=== PATIENT | female | born 1970 | race Caucasian/White ===

== ENCOUNTER → 2016-10-31 | Outpatient (CLI) | payer SELFPAY | LOC: KOH-I 12:54 | DX: M67.431 Ganglion, right wrist (principal); M25.531 Pain in right wrist | CPT/HCPCS: 73110 ==

== ENCOUNTER → 2020-10-20 | Outpatient (CLI) | payer BC, OTHER ==
[~2020-10-20] MED LIST: ACCUPRIL10 MG PO; KLONOPIN TAB 00.5 MG PO; METOPROLOL TART25 MG PO; RANITIDINE HCL300 MG PO; ZOLOFT100 MG PO
[2020-10-20 11:32] LABS: RED BLOOD COUNT 4.21 M/UL (4.00-5.10); WHITE BLOOD COUNT 7.7 K/UL (4.5-11.0)
[2020-10-20 12:01] LABS: BUN/CREATININE RATIO 10 (0-10)
== END ==
LOC: LAB 10:52
PROVIDERS: Physician Assistant
DX: R10.13 Epigastric pain (principal)
CPT/HCPCS: 36415; 80048; 80076; 81001; 82150; 83690; 85025

== ENCOUNTER → 2021-03-27 | Outpatient (CLI) | payer BC | LOC: MAMO 11:05 | DX: Z12.31 Encounter for screening mammogram for malignant neoplasm of breast (principal) | CPT/HCPCS: 77063; 77067 ==

== ENCOUNTER → 2021-12-15 | Outpatient (CLI) | payer BC | LOC: ECHO 08:14 | DX: O90.3 Peripartum cardiomyopathy (principal); I42.9 Cardiomyopathy, unspecified | CPT/HCPCS: ECHO; 93306 ==

== ENCOUNTER → 2022-03-30 | Outpatient (CLI) | payer BC | LOC: MAMO 12:23 | DX: Z12.31 Encounter for screening mammogram for malignant neoplasm of breast (principal) | CPT/HCPCS: 77063; 77067 ==